=== PATIENT | female | born 1970 | race Caucasian/White ===

== ENCOUNTER 2016-08-18 11:18 | Observation (INO) | payer BC ==
[~2016-08-18] VITALS: Ht 170.2 cm; Wt 67.1 kg
[2016-08-18] MEDS ORDERED: LYRICA100 MG PO (11:32)
[2016-08-18] MEDS ORDERED: OXYCONTIN30 MG PO (11:33)
[2016-08-18] MEDS ORDERED: OPANA ER10 MG PO ×2 (11:33→11:34)
[2016-08-18] MEDS ORDERED: XANAX1 MG PO (11:34)
[2016-08-18] MEDS ORDERED: LIDODERM 5% P1 PATCH TD ×2 (11:34→17:59)
[2016-08-18] MEDS ORDERED: TRILEPTAL300 MG PO (11:35)
[2016-08-18] MEDS ORDERED: CELEBREX200 MG PO (11:35)
[2016-08-18] MEDS ORDERED: TRAZODONE HCL150 MG PO (11:35)
[2016-08-18] MEDS ORDERED: AMBIEN CR12.5 MG PO (11:35)
[2016-08-18] MEDS ORDERED: POTASSIUM GLUCO99 M1 PO (11:36)
[2016-08-18] MEDS ORDERED: CALTRATE 600 +1 EAC1 PO (11:36)
[2016-08-18] MEDS ORDERED: FLEXERIL10 MG PO (11:37)
[2016-08-18] MEDS ORDERED: FERROUS SULFAT325 MG PO (11:37)
[2016-08-18] MEDS ORDERED: PRILOSEC20 MG PO (11:37)
[2016-08-18 12:07] LABS: HEMATOCRIT 43.5 % (36.0-46.0); MCHC 34.3 G/DL (30.0-36.0); MCV 87.7 FL (83-99); PLATELET COUNT 433 K/uL (156-360); RBC DIS.WIDTH-CV 13.2 % (11.8-14.6); RBC DIS.WIDTH-SD 42.7 % (39-53); RED BLOOD COUNT 4.96 M/uL (3.80-5.20); WHITE BLOOD COUNT 17.3 K/uL (4.1-10.2)
[2016-08-18 12:15] LABS: CHLORIDE 103 mEq/L (99-109); POTASSIUM 3.5 mEq/L (3.7-5.4); SODIUM 145 mEq/L (136-147)
[2016-08-18 12:17] LABS: GLUCOSE 138 mg/dL (70-99)
[2016-08-18 12:18] LABS: ANION GAP 16 MEQ/L (2-14)
[2016-08-18 12:21] LABS: GFR ESTIMATE (CALCULATED) > 59 mL/min/; UREA NITROGEN (BUN) 17 mg/dL (9-23)
[2016-08-18 12:28] LABS: TROP-I INTERPRETATION NEGATIVE; TROPONIN-I < 0.01 ng/mL (0.0-0.30)
[2016-08-18] MEDS ORDERED: CENTRAL-VITE S1 EAC2 PO (17:13)
[2016-08-18] MEDS ORDERED: STOOL SOFTENER250 MG PO (17:14)
[2016-08-18] MEDS ORDERED: LEXAPRO10 MG PO ×2 (17:14→17:58)
[2016-08-18] MEDS ORDERED: OXYCONTIN60 MG PO (17:57)
[2016-08-18] MEDS ORDERED: OPANA IR10 MG PO (17:57)
[2016-08-18] MEDS ORDERED: LEXAPRO20 MG PO (17:58)
[2016-08-18] MEDS ORDERED: TRAZODONE HCL50 MG PO (17:59)
[2016-08-18 18:12] LABS: TROP-I INTERPRETATION NEGATIVE; TROPONIN-I < 0.01 ng/mL (0.0-0.30)
[2016-08-18 18:20] VITALS: BP 119/59
[2016-08-19 00:23] VITALS: BP 135/78
[2016-08-19 01:12] LABS: TROP-I INTERPRETATION NEGATIVE; TROPONIN-I < 0.01 ng/mL (0.0-0.30)
[2016-08-19 03:53] VITALS: BP 135/76
[2016-08-19 05:17] LABS: ADD MIUA? YES; BILIRUBIN NEGATIVE; BLOOD NEGATIVE; COLOR AMBER ((YELLOW)); GLUCOSE (STRIP) NEGATIVE; KETONES NEGATIVE; LEUKOCYTES NEGATIVE; NITRITE NEGATIVE; PROTEIN (STRIP) 30; SPECIFIC GRAVITY 1.026 (1.000-1.030); UROBILINOGEN 0.2 MG/DL (0.2-1.0)
[2016-08-19 06:12] LABS: BACTERIA 3+ /HPF; EPITHELIAL CELLS 2+ /HPF; MUCUS 3+ /LPF
[2016-08-19 06:13] LABS: HYALINE CASTS 0-5 /LPF; RED BLOOD CELLS NONE SEEN /HPF (0-5); UCUL ADDED? YES
[2016-08-19 06:14] LABS: AMORPHOUS URATES CRYSTALS 1+; COARSE GRANULAR CASTS 0-5 /LPF; CRYSTALS PRESENT
[2016-08-19 06:25] LABS: HEMATOCRIT 39.3 % (36.0-46.0); MCH 30.3 PG (29.0-34.0); MCHC 33.3 G/DL (30.0-36.0); MCV 90.8 FL (83-99); MEAN PLAT.VOLUME 10.7 uM^3 (9.5-12.4); PLATELET COUNT 344 K/uL (156-360); RBC DIS.WIDTH-CV 13.6 % (11.8-14.6); RBC DIS.WIDTH-SD 45.6 % (39-53); RED BLOOD COUNT 4.33 M/uL (3.80-5.20); WHITE BLOOD COUNT 13.6 K/uL (4.1-10.2)
[2016-08-19 06:52] LABS: ANION GAP 10 MEQ/L (2-14); CHLORIDE 110 MEQ/L (99-109); CREATINE KINASE 52 IU/L (1-294); GFR ESTIMATE (CALCULATED) > 59 mL/min/; GLUCOSE 115 mg/dL (70-99); POTASSIUM 3.6 MEQ/L (3.7-5.4); SAMPLE HEMOLYSIS CHECK 0; SAMPLE ICTERIC CHECK 0; SAMPLE LIPEMIA CHECK 0; SODIUM 147 MEQ/L (136-147); UREA NITROGEN (BUN) 13 mg/dL (9-23)
[2016-08-19 07:32] VITALS: BP 147/98
[2016-08-19 11:40] VITALS: BP 155/72
[2016-08-19] MEDS ORDERED: NICOTINE PATCH1 EAC2 TD (15:10)
[2016-08-19] MEDS ORDERED: TRILEPTAL300 MG PO (15:30)
[2016-08-19 15:34] VITALS: BP 108/67
== END 2016-08-19 16:39 | disposition home or self-care (01) ==
LOC: EME → EDBD 11:18 → EME 11:18 → 5WEST 16:06 → EDOF 16:06 → 5WEST 18:00
PROVIDERS: Internal Medicine; Physician Assistant Medical
DX: G40.909 Epilepsy, unspecified, not intractable, without status epilepticus (principal); R11.2 Nausea with vomiting, unspecified; D72.829 Elevated white blood cell count, unspecified; F17.200 Nicotine dependence, unspecified, uncomplicated
CPT/HCPCS: 70450; 73502; 80048; 81003; 82550 91; 83605; 84146; 84484; 85027; 87086; 93005; 99281; 99285; G0378; J1650; J1953; J2060; J2405; J2765; J7030; J7042; J7050; S0028

== ENCOUNTER 2016-11-21 18:08 | Day surgery (SDC) | payer BC ==
[~2016-11-21] VITALS: Ht 167.6 cm; Wt 71.3 kg
[~2016-11-21 18:08] MED LIST: AMBIEN CR12.5 MG PO; CALTRATE 600 +1 EAC1 PO; CELEBREX200 MG PO; CENTRAL-VITE S1 EAC2 PO; FERROUS SULFAT325 MG PO; FLEXERIL10 MG PO; LEXAPRO10 MG PO; LEXAPRO20 MG PO; LIDODERM 5% P1 PATCH TD; LYRICA100 MG PO; NICOTINE PATCH1 EAC2 TD; OPANA ER10 MG PO; OPANA IR10 MG PO; OXYCONTIN30 MG PO; OXYCONTIN60 MG PO; POTASSIUM GLUCO99 M1 PO; PRILOSEC20 MG PO; STOOL SOFTENER250 MG PO; TRAZODONE HCL150 MG PO; TRAZODONE HCL50 MG PO; TRILEPTAL300 MG PO; XANAX1 MG PO
[2016-11-21 18:27] LABS: HEMATOCRIT 42.5 % (36.0-46.0); MCH 30.2 PG (29.0-34.0); MCHC 35.5 G/DL (30.0-36.0); RBC DIS.WIDTH-CV 12.5 % (11.8-14.6); RBC DIS.WIDTH-SD 38.9 % (39-53); WHITE BLOOD COUNT 6.3 K/uL (4.1-10.2)
[2016-11-21 18:36] LABS: CHLORIDE 91 mEq/L (99-109); POTASSIUM 4.2 mEq/L (3.7-5.4); SODIUM 131 mEq/L (136-147)
[2016-11-21 18:38] LABS: GLUCOSE 114 mg/dL (70-99)
[2016-11-21 18:39] LABS: ANION GAP 15 MEQ/L (2-14)
[2016-11-21 18:40] LABS: TOTAL BILIRUBIN 0.3 mg/dL (0.0-1.0)
[2016-11-21 18:42] LABS: ALKALINE PHOSPHATASE 108 IU/L (3-129); GFR ESTIMATE (CALCULATED) > 59 mL/min/
[2016-11-21 18:43] LABS: UREA NITROGEN (BUN) 3 mg/dL (9-23)
[2016-11-21 18:50] LABS: QUANTITATIVE HCG < 4.0 MIU/ML
[2016-11-21 19:15] LABS: MEAN PLAT.VOLUME 10.3 uM^3 (9.5-12.4); PLAT.SUFFICIENCY ADEQUATE; PLATELET COUNT 298 K/uL (156-360)
[2016-11-21] MEDS ORDERED: CHANTIX0.5 MG PO (20:23)
[2016-11-21] MEDS ORDERED: CYCLOBENZAPRINE10 MG PO ×2 (20:24→22:27)
[2016-11-21] MEDS ORDERED: PREMPRO 0.621 TABLE1 PO (20:24)
[2016-11-21] MEDS ORDERED: CHANTIX1 EACH PO (22:30)
[2016-11-21] MEDS ORDERED: TUMS500 MG PO (22:32)
[2016-11-21] MEDS ORDERED: CENTRUM SILVER1 EAC4 PO (22:33)
[2016-11-21] MEDS ORDERED: OXYCONTIN80 MG PO (22:37)
[2016-11-21] MEDS ORDERED: LIDOCAINE HCL35 GM TP (22:39)
[2016-11-21] MEDS ORDERED: OXCARBAZEPINE300 MG PO (22:41)
[2016-11-21 22:51] LABS: ADD MIUA? YES; BILIRUBIN NEGATIVE; BLOOD NEGATIVE; COLOR YELLOW ((YELLOW)); GLUCOSE (STRIP) NEGATIVE; KETONES 5; LEUKOCYTES NEGATIVE; NITRITE NEGATIVE; PROTEIN (STRIP) NEGATIVE; SPECIFIC GRAVITY 1.025 (1.000-1.030); UROBILINOGEN 0.2 MG/DL (0.2-1.0)
[2016-11-21 22:56] LABS: BACTERIA NONE SEEN /HPF; EPITHELIAL CELLS 1+ /HPF; MUCUS TRACE /LPF; RED BLOOD CELLS 0-5 /HPF (0-5); UCUL ADDED? NO; WHITE BLOOD CELLS 0-5 /HPF (0-5)
[2016-11-22 02:58] VITALS: BP 155/74
[2016-11-22 07:20] VITALS: BP 94/59
[2016-11-22 12:03] VITALS: BP 100/61
[2016-11-22 15:35] VITALS: BP 105/67
[2016-11-22 20:05] VITALS: BP 101/58
[2016-11-23 00:04] VITALS: BP 93/61
[2016-11-23 05:32] VITALS: BP 102/61
[2016-11-23 07:07] VITALS: BP 108/69
== END 2016-11-23 10:44 | disposition home or self-care (01) ==
LOC: EME 18:08 → SDC 23:58 → EME 23:58 → 2SOUTH 11-22 00:50 → 2EASTP 11-22 00:50 → 2SOUTH 11-22 00:50 → 2EASTP 11-22 02:55 → 2EAST 11-22 02:57 → 2EASTP 11-22 02:58 → 2SOUTH 11-22 02:58 → 2EASTP 11-23 10:44
PROC: 0DTJ4ZZ Resection of Appendix, Percutaneous Endoscopic Approach (ICD-10-PCS; principal; 2016-11-22)
DX: K35.80 Unspecified acute appendicitis (principal); G89.29 Other chronic pain; M54.5 Low back pain; Z79.891 Long term (current) use of opiate analgesic; G40.909 Epilepsy, unspecified, not intractable, without status epilepticus; K21.9 Gastro-esophageal reflux disease without esophagitis; M79.7 Fibromyalgia; F41.9 Anxiety disorder, unspecified; G47.00 Insomnia, unspecified; Z98.1 Arthrodesis status; F17.210 Nicotine dependence, cigarettes, uncomplicated; M19.90 Unspecified osteoarthritis, unspecified site
CPT/HCPCS: 74177; 80053; 81003; 84702; 85027; 88305; 99281; 99285; G0378; J0131; J0330; J1170; J1650; J1885; J2060; J2250; J2270; J2405; J2710; J3010; J7030; J7042

== ENCOUNTER 2016-12-14 15:29 | Emergency (ER) | payer BC ==
[~2016-12-14] VITALS: Ht 167.6 cm; Wt 98.7 kg
[~2016-12-14 15:29] MED LIST changes: +CENTRUM SILVER1 EAC4 PO; +CHANTIX0.5 MG PO; +CHANTIX1 EACH PO; +CYCLOBENZAPRINE10 MG PO; +LIDOCAINE HCL35 GM TP; +OXCARBAZEPINE300 MG PO; +OXYCONTIN80 MG PO; +PREMPRO 0.621 TABLE1 PO; +TUMS500 MG PO
[2016-12-14 15:59] LABS: HEMATOCRIT 40.3 % (36.0-46.0); MCH 29.6 PG (29.0-34.0); MCHC 34.5 G/DL (30.0-36.0); MCV 85.7 FL (83-99); MEAN PLAT.VOLUME 9.4 uM^3 (9.5-12.4); PLATELET COUNT 308 K/uL (156-360); RBC DIS.WIDTH-SD 40.5 % (39-53); WHITE BLOOD COUNT 5.3 K/uL (4.1-10.2)
[2016-12-14 16:08] LABS: CHLORIDE 101 mEq/L (99-109); POTASSIUM 3.9 mEq/L (3.7-5.4)
[2016-12-14 16:09] LABS: SODIUM 135 mEq/L (136-147)
[2016-12-14 16:10] LABS: GLUCOSE 84 mg/dL (70-99)
[2016-12-14 16:12] LABS: ANION GAP 9 MEQ/L (2-14)
[2016-12-14 16:14] LABS: GFR ESTIMATE (CALCULATED) > 59 mL/min/
[2016-12-14 16:15] LABS: UREA NITROGEN (BUN) 5 mg/dL (9-23)
[2016-12-14 16:20] LABS: TROP-I INTERPRETATION NEGATIVE; TROPONIN-I < 0.01 ng/mL (0.0-0.30)
[2016-12-14 17:01] LABS: D-DIMER ELISA 0.16 mg/L FEU (< 0.57)
[2016-12-14 18:27] LABS: TROP-I INTERPRETATION NEGATIVE; TROPONIN-I < 0.01 ng/mL (0.0-0.30)
[2016-12-14 18:42] LABS: ADD MIUA? NO; BILIRUBIN NEGATIVE; BLOOD NEGATIVE; COLOR STRAW ((YELLOW)); GLUCOSE (STRIP) NEGATIVE; KETONES NEGATIVE; LEUKOCYTES NEGATIVE; NITRITE NEGATIVE; PROTEIN (STRIP) NEGATIVE; SPECIFIC GRAVITY 1.005 (1.000-1.030); UROBILINOGEN 0.2 MG/DL (0.2-1.0)
[2016-12-14 19:08] LABS: AMPHETAMINE NEGATIVE (500 ng/mL); BARBITURATES NEGATIVE (200 ng/mL); BENZODIAZEPINES PRESUMPTIVE POSITIVE (150 ng/mL); COCAINE NEGATIVE (150 ng/mL); METHADONE NEGATIVE (200 ng/mL); METHAMPHETAMINE NEGATIVE (500 ng/mL); OPIATES (MORPHINE) NEGATIVE (100 ng/mL); OXYCODONE PRESUMPTIVE POSITIVE (100 ng/mL); PHENCYCLIDINE NEGATIVE (25 ng/mL); PROPOXYPHENE NEGATIVE (300 ng/mL); THC CANNABINOIDS NEGATIVE (50 ng/mL); TRICYCLIC ANTIDEPRESSANTS NEGATIVE (300 ng/mL)
[2016-12-14 19:09] LABS: ADD MEDTOX COMMENT Y; INTERNAL CONTROLS VALID? YES
[2016-12-14 19:48] VITALS: BP 95/69
[2016-12-14 19:52] LABS: BENZODIAZEPINES, URINE SCREEN POSITIVE (200 ng/mL)
== END 2016-12-14 19:49 | disposition home or self-care (01) ==
LOC: EME 15:29
PROVIDERS: Physician Assistant
DX: R07.89 Other chest pain (principal); R00.2 Palpitations; M79.7 Fibromyalgia; K21.9 Gastro-esophageal reflux disease without esophagitis; F17.200 Nicotine dependence, unspecified, uncomplicated
CPT/HCPCS: 71020; 80048; 81003; 84439; 84443; 84484; 84999; 85027; 85379; 93005; 99281; 99284

== ENCOUNTER 2017-06-24 19:11 | Emergency (ER) | payer BC ==
[~2017-06-24] VITALS: Ht 160 cm; Wt 55.7 kg
[2017-06-24 19:41] LABS: HEMATOCRIT 37.3 % (36.0-46.0); HEMOGLOBIN 13.4 G/DL (11.9-15.5); MCHC 35.9 G/DL (30.0-36.0); MCV 86.3 FL (83-99); PLATELET COUNT 283 K/uL (156-360); RBC DIS.WIDTH-CV 12.4 % (11.8-14.6); RBC DIS.WIDTH-SD 39.5 % (39-53); RED BLOOD COUNT 4.32 M/uL (3.80-5.20); WHITE BLOOD COUNT 8.3 K/uL (4.1-10.2)
[2017-06-24 19:52] LABS: CHLORIDE 96 mEq/L (99-109); POTASSIUM 3.9 mEq/L (3.7-5.4); SODIUM 128 mEq/L (136-147)
[2017-06-24 19:54] LABS: GLUCOSE 154 mg/dL (70-99)
[2017-06-24 19:57] LABS: SERUM ETHYL ALCOHOL < 10 mg/dL
[2017-06-24 19:58] LABS: CREATININE 0.7 mg/dL (0.6-1.3); GFR ESTIMATE (CALCULATED) > 59 mL/min/; UREA NITROGEN (BUN) 6 mg/dL (9-23)
[2017-06-24 20:37] LABS: AMPHETAMINE NEGATIVE (500 ng/mL); BARBITURATES NEGATIVE (200 ng/mL); BENZODIAZEPINES PRESUMPTIVE POSITIVE (150 ng/mL); BUPRENORPHINE NEGATIVE (10 ng/mL); COCAINE NEGATIVE (150 ng/mL); METHADONE NEGATIVE (200 ng/mL); METHAMPHETAMINE NEGATIVE (500 ng/mL); OPIATES (MORPHINE) NEGATIVE (100 ng/mL); OXYCODONE PRESUMPTIVE POSITIVE (100 ng/mL); PHENCYCLIDINE NEGATIVE (25 ng/mL); PROPOXYPHENE NEGATIVE (300 ng/mL); THC CANNABINOIDS NEGATIVE (50 ng/mL); TRICYCLIC ANTIDEPRESSANTS PRESUMPTIVE POSITIVE (300 ng/mL)
[2017-06-24 21:01] VITALS: BP 130/82
[2017-06-24 22:03] LABS: BENZODIAZEPINES, URINE SCREEN POSITIVE (200 ng/mL)
[2017-06-25] MEDS ORDERED: ESTRACE1 MG PO (12:15)
[2017-06-25] MEDS ORDERED: PROGESTERONE100 MG PO (12:16)
[2017-06-25] MEDS ORDERED: SEROQUEL50 MG PO (12:19)
[2017-06-25] MEDS ORDERED: OXYCONTIN60 MG PO (12:20)
[2017-06-25] MEDS ORDERED: OPANA IR5 MG PO (12:24)
[2017-06-25] MEDS ORDERED: VIMOVO 500-201 EAC1 PO (12:26)
== END 2017-06-24 21:07 | disposition home or self-care (01) ==
LOC: EME → EDBD 19:11 → EME 20:32
PROVIDERS: Emergency Medicine
DX: E87.1 Hypo-osmolality and hyponatremia (principal); G40.909 Epilepsy, unspecified, not intractable, without status epilepticus; Z91.14 Patient's other noncompliance with medication regimen; K21.9 Gastro-esophageal reflux disease without esophagitis; M79.7 Fibromyalgia; F41.9 Anxiety disorder, unspecified
CPT/HCPCS: 80048; 80185; 84999; 85027; G0480; J2405; J7030

== ENCOUNTER 2017-06-24 21:37 | Observation (INO) | payer BC ==
[~2017-06-24] VITALS: Ht 165.1 cm; Wt 56.5 kg
[2017-06-25 01:28] VITALS: BP 131/61
[2017-06-25 07:55] VITALS: BP 140/71
[2017-06-25 10:44] LABS: CHLORIDE 104 MEQ/L (99-109); CREATININE 0.5 MG/DL (0.6-1.3); GFR ESTIMATE (CALCULATED) > 59 mL/min/; POTASSIUM 3.2 MEQ/L (3.7-5.4); UREA NITROGEN (BUN) 4 mg/dL (9-23)
[2017-06-25 10:45] LABS: GLUCOSE 113 mg/dL (70-99); SODIUM 141 MEQ/L (136-147)
[2017-06-25 11:02] VITALS: BP 137/69
[2017-06-25] MEDS ORDERED: ESTRACE1 MG PO (12:15)
[2017-06-25] MEDS ORDERED: PROGESTERONE100 MG PO (12:16)
[2017-06-25] MEDS ORDERED: SEROQUEL50 MG PO (12:19)
[2017-06-25] MEDS ORDERED: OXYCONTIN60 MG PO (12:20)
[2017-06-25] MEDS ORDERED: OPANA IR5 MG PO (12:24)
[2017-06-25] MEDS ORDERED: VIMOVO 500-201 EAC1 PO (12:26)
[2017-06-25 14:56] LABS: ALBUMIN 4.1 G/DL (3.2-4.8); ALKALINE PHOSPHATASE 144 IU/L (3-129); ALT (GPT) 66 IU/L (3-49); AST (GOT) 58 IU/L (2-34); DIRECT BILIRUBIN 0.3 mg/dL (0.0-0.3); LIPASE 24 U/L (1.0-51.0); MAGNESIUM 1.8 mg/dl (1.3-2.7); TOTAL BILIRUBIN 0.5 MG/DL (0.0-1.0); TOTAL PROTEIN 6.5 G/DL (6.4-8.3)
[2017-06-25 16:08] VITALS: BP 127/67
[2017-06-25 19:00] VITALS: BP 145/76
[2017-06-26] VITALS: BP 120/72
[2017-06-26 09:00] VITALS: BP 161/74
[2017-06-26 09:24] LABS: HEMATOCRIT 38.5 % (36.0-46.0); HEMOGLOBIN 13.5 G/DL (11.9-15.5); MCH 31.3 PG (29.0-34.0); MCHC 35.1 G/DL (30.0-36.0); MCV 89.3 FL (83-99); PLATELET COUNT 263 K/uL (156-360); RBC DIS.WIDTH-CV 13.2 % (11.8-14.6); RBC DIS.WIDTH-SD 43.5 % (39-53); RED BLOOD COUNT 4.31 M/uL (3.80-5.20); WHITE BLOOD COUNT 10.4 K/uL (4.1-10.2)
[2017-06-26 09:53] LABS: CHLORIDE 103 MEQ/L (99-109); CREATININE 0.6 MG/DL (0.6-1.3); GFR ESTIMATE (CALCULATED) > 59 mL/min/; POTASSIUM 3.7 MEQ/L (3.7-5.4); SODIUM 139 MEQ/L (136-147); UREA NITROGEN (BUN) 7 mg/dL (9-23)
[2017-06-26 10:01] LABS: GLUCOSE 72 mg/dL (70-99)
[2017-06-26 11:48] VITALS: BP 138/78
[2017-06-26 16:17] VITALS: BP 154/77
[2017-06-27 00:04] VITALS: BP 94/54
[2017-06-27 04:11] VITALS: BP 100/67
[2017-06-27 05:58] LABS: ALBUMIN 3.1 G/DL (3.2-4.8); ALT (GPT) 66 IU/L (3-49); AST (GOT) 36 IU/L (2-34); CHLORIDE 107 MEQ/L (99-109); CREATININE 0.5 MG/DL (0.6-1.3); GFR ESTIMATE (CALCULATED) > 59 mL/min/; GLUCOSE 71 mg/dL (70-99); POTASSIUM 3.3 MEQ/L (3.7-5.4); SODIUM 139 MEQ/L (136-147); TOTAL BILIRUBIN 0.4 MG/DL (0.0-1.0); UREA NITROGEN (BUN) 5 mg/dL (9-23)
[2017-06-27 05:59] LABS: ALKALINE PHOSPHATASE 94 IU/L (3-129); TOTAL PROTEIN 4.9 G/DL (6.4-8.3)
[2017-06-27 06:04] LABS: HEMATOCRIT 31.3 % (36.0-46.0); HEMOGLOBIN 10.7 G/DL (11.9-15.5); MCH 30.6 PG (29.0-34.0); MCHC 34.2 G/DL (30.0-36.0); MCV 89.4 FL (83-99); PLATELET COUNT 227 K/uL (156-360); RBC DIS.WIDTH-CV 13.1 % (11.8-14.6); RBC DIS.WIDTH-SD 42.7 % (39-53); WHITE BLOOD COUNT 7.8 K/uL (4.1-10.2)
[2017-06-27 08:18] VITALS: BP 137/74
[2017-06-27] MEDS ORDERED: PROTONIX40 MG PO (09:16)
[2017-06-27] MEDS ORDERED: ZOFRAN4 MG PO (09:16)
== END 2017-06-27 10:37 | disposition home or self-care (01) ==
LOC: EME 21:37 → 5WEST 23:56 → EDOF 23:56 → ENRESERV 23:57 → 5WEST 06-25 00:39
PROVIDERS: Family Medicine
DX: R11.2 Nausea with vomiting, unspecified (principal); K29.70 Gastritis, unspecified, without bleeding; G40.909 Epilepsy, unspecified, not intractable, without status epilepticus; G89.29 Other chronic pain; E87.6 Hypokalemia; K22.70 Barrett's esophagus without dysplasia; K21.9 Gastro-esophageal reflux disease without esophagitis; Z87.11 Personal history of peptic ulcer disease; Z79.1 Long term (current) use of non-steroidal anti-inflammatories (NSAID); K59.09 Other constipation; T40.2X5A Adverse effect of other opioids, initial encounter; F11.20 Opioid dependence, uncomplicated; F32.9 Major depressive disorder, single episode, unspecified; F41.9 Anxiety disorder, unspecified; M79.7 Fibromyalgia; K80.20 Calculus of gallbladder without cholecystitis without obstruction; R79.89 Other specified abnormal findings of blood chemistry; E87.1 Hypo-osmolality and hyponatremia; E87.8 Other disorders of electrolyte and fluid balance, not elsewhere classified; Z87.891 Personal history of nicotine dependence; Z98.1 Arthrodesis status; Z88.8 Allergy status to other drugs, medicaments and biological substances; Z88.1 Allergy status to other antibiotic agents
CPT/HCPCS: 70450; 76705; 80048; 80053; 80076; 80306 90; 83690; 83735; 85027; 88305; 88342 TC; 99281; 99285; C9113; G0378; J2250; J2405; J2765; J7030